=== PATIENT | male | born 1960 | race Caucasian/White ===

== ENCOUNTER 2019-03-13 08:19 | Day surgery (SDC) | payer OTHER ==
[2019-03-12 16:50] VITALS: BMI 31.6
[2019-03-13 11:32] VITALS: TEMP 97.9
[2019-03-13 13:52] VITALS: BP 120/60; PULSE 64
--- NOTE | 2019-03-14 18:15 | PATH ---
Surgical Pathology Report Patient Name: HUBERT MILTON [facility]. Rec. #: [id number] /Age/Gender: 1960 (Age: 58) / M Account: [id number] Location: [facility]-ENDOSCOPY Taken: 03/13/2019 Received: 03/13/2019 Reported: 03/14/2019 Physicians: Maikel Watters D.O. Specimen(s) Received A: TRANSVERSE COLON POLYP B: CECAL POLYP # 1 C: CECAL POLYP # 2 D: POLYP SIGMOID Clinical History Benign neoplasm of colon Postoperative diagnosis: Colon polyps, hemorrhoids Final Diagnosis A. TRANSVERSE COLON POLYP, BIOPSY: HYPERPLASTIC POLYP. B. CECAL POLYP #1, POLYPECTOMY: HYPERPLASTIC POLYP. C. CECAL POLYP #2, BIOPSY: POLYPOID COLONIC MUCOSA WITHOUT SIGNIFICANT PATHOLOGIC FINDINGS. D. SIGMOID COLON, POLYP, BIOPSY: HYPERPLASTIC POLYP. Electronically Signed Pili Parish M.D. Gross Description A. Received in formalin, labeled "transverse colon polyp" is a black, irregular portion of soft tissue measuring 0.3 cm. in greatest dimension. The specimen is submitted in toto in one cassette. B. Received in formalin, labeled "cecal polyp #1" are 2 black, irregular portions of soft tissue ranging in size from 0.2-0.7 cm. in greatest dimension. The specimens are submitted in toto in one cassette. C. Received in formalin, labeled "cecal polyp #2" is a black, irregular portion of soft tissue measuring 0.3 cm. in greatest dimension. The specimen is submitted in toto in one cassette. D. Received in formalin, labeled "sigmoid colon polyp" is a black, irregular portion of soft tissue measuring 0.2 cm. in greatest dimension. The specimen is submitted in toto in one cassette. MLSZ/03/13/2019 sanml/03/13/2019
== END 2019-03-13 12:45 | disposition home or self-care (01) ==
LOC: JASU-ENDO 08:19
PROVIDERS: ATTEND Internal Medicine Gastroenterology
PROC: 0DBL8ZX Excision of Transverse Colon, Via Natural or Artificial Opening Endoscopic, Diagnostic (ICD-10-PCS; 2019-03-13)
PROC: 0DBH8ZX Excision of Cecum, Via Natural or Artificial Opening Endoscopic, Diagnostic (ICD-10-PCS; 2019-03-13)
PROC: 3E0H8GC Introduction of Other Therapeutic Substance into Lower GI, Via Natural or Artificial Opening Endoscopic (ICD-10-PCS; 2019-03-13)
PROC: 0DBN8ZX Excision of Sigmoid Colon, Via Natural or Artificial Opening Endoscopic, Diagnostic (ICD-10-PCS; principal; 2019-03-13 10:30)
DX: Z12.11 Encounter for screening for malignant neoplasm of colon (principal); Z80.0 Family history of malignant neoplasm of digestive organs; D12.0 Benign neoplasm of cecum; K63.5 Polyp of colon; I10 Essential (primary) hypertension; E78.00 Pure hypercholesterolemia, unspecified; K21.9 Gastro-esophageal reflux disease without esophagitis; K63.89 Other specified diseases of intestine; K64.8 Other hemorrhoids
CPT/HCPCS: 88305-TC

== ENCOUNTER 2022-09-16 04:19 | Day surgery (SDC) | payer OTHER ==
[2022-09-15 12:34] VITALS: BMI 32.5
[2022-09-16 09:08] VITALS: RESP 18
[2022-09-16 12:39] VITALS: BP 121/64; PULSE 60
[2022-09-16 14:53] VITALS: TEMP 98
== END 2022-09-16 12:00 | disposition home or self-care (01) ==
LOC: JASU-ENDO 04:19
PROVIDERS: ATTEND Internal Medicine Gastroenterology
PROC: 0DBC8ZX Excision of Ileocecal Valve, Via Natural or Artificial Opening Endoscopic, Diagnostic (ICD-10-PCS; 2022-09-16)
PROC: 0DBM8ZX Excision of Descending Colon, Via Natural or Artificial Opening Endoscopic, Diagnostic (ICD-10-PCS; principal; 2022-09-16 10:00)
DX: Z12.11 Encounter for screening for malignant neoplasm of colon (principal); K57.30 Diverticulosis of large intestine without perforation or abscess without bleeding; D12.4 Benign neoplasm of descending colon; K63.89 Other specified diseases of intestine; K64.8 Other hemorrhoids; Z80.0 Family history of malignant neoplasm of digestive organs
CPT/HCPCS: 88305-TC